=== PATIENT | male | born 1975 | race Caucasian/White ===

== ENCOUNTER 2017-10-01 23:43 | Emergency (ER) | payer SELFPAY ==
[~2017-10-01] VITALS: Ht 195.6 cm; Wt 113.3 kg
[2017-10-02 00:54] LABS: BASOPHIL (%) 0.3 % (0-1); EOSINOPHIL (%) 1.6 % (0-5); EOSINOPHIL COUNT 0.2 K/uL (0-0.3); HEMATOCRIT 44.2 % (38.0-50.0); HEMOGLOBIN 15.2 G/DL (12.5-16.6); IMMATURE GRANULOCYTE (%) 0.5 % (0.0-0.7); LYMPHOCYTE COUNT 1.8 K/uL (1.0-2.8); MCH 27.7 PG (29.0-34.0); MCHC 34.4 G/DL (30.0-36.0); MCV 80.5 FL (86-99); MONOCYTE (%) 7.5 % (3-12); MONOCYTE COUNT 0.9 K/uL (0-0.8); NEUTROPHIL (%) 75.1 % (45-76); NEUTROPHIL COUNT 9.1 K/uL (1.8-6.4); PLATELET COUNT 276 K/uL (156-360); RBC DIS.WIDTH-CV 12.7 % (11.8-14.6); RBC DIS.WIDTH-SD 37.2 % (39-53); RED BLOOD COUNT 5.49 M/uL (4.00-5.50); WHITE BLOOD COUNT 12.1 K/uL (4.1-10.2)
[2017-10-02 01:09] LABS: CHLORIDE 105 mEq/L (99-109); POTASSIUM 3.7 mEq/L (3.7-5.4); SODIUM 138 mEq/L (136-147)
[2017-10-02 01:10] LABS: GLUCOSE 100 mg/dL (70-99)
[2017-10-02 01:14] LABS: CREATININE 0.9 mg/dL (0.6-1.3); GFR ESTIMATE (CALCULATED) > 59 mL/min/ (58.99-99999)
[2017-10-02 01:15] LABS: UREA NITROGEN (BUN) 12 mg/dL (9-23)
[2017-10-02] MEDS ORDERED: MOTRIN800 MG PO (02:47)
[2017-10-02 02:58] VITALS: BP 154/98
== END 2017-10-02 02:59 | disposition home or self-care (01) ==
LOC: EME 23:43
PROVIDERS: Physician Assistant
DX: J02.9 Acute pharyngitis, unspecified (principal); R13.10 Dysphagia, unspecified; R22.1 Localized swelling, mass and lump, neck
CPT/HCPCS: 70491; 80048; 83605; 85025; 87040; 87077; 87185; 87651 90; 87801; 99281; 99284; J1100; J1885

== ENCOUNTER 2017-10-04 15:33 | Emergency (ER) | payer SELFPAY ==
[~2017-10-04] VITALS: Ht 195.6 cm; Wt 113.1 kg
[~2017-10-04 15:33] MED LIST: MOTRIN800 MG PO
[2017-10-04 16:58] LABS: BASOPHIL (%) 0.5 % (0-1); BASOPHIL COUNT 0.1 K/uL (0-0.1); EOSINOPHIL (%) 2.2 % (0-5); EOSINOPHIL COUNT 0.2 K/uL (0-0.3); HEMATOCRIT 48.3 % (38.0-50.0); HEMOGLOBIN 16.4 G/DL (12.5-16.6); IMMATURE GRANULOCYTE (%) 0.2 % (0.0-0.7); LYMPHOCYTE (%) 23.1 % (15-42); LYMPHOCYTE COUNT 2.2 K/uL (1.0-2.8); MCH 27.6 PG (29.0-34.0); MCV 81.2 FL (86-99); MONOCYTE (%) 9.9 % (3-12); MONOCYTE COUNT 0.9 K/uL (0-0.8); NEUTROPHIL (%) 64.1 % (45-76); PLATELET COUNT 266 K/uL (156-360); RBC DIS.WIDTH-CV 12.9 % (11.8-14.6); RBC DIS.WIDTH-SD 37.6 % (39-53); RED BLOOD COUNT 5.95 M/uL (4.00-5.50); WHITE BLOOD COUNT 9.4 K/uL (4.1-10.2)
[2017-10-04 17:08] LABS: ALBUMIN 3.4 g/dL (3.2-4.8); CHLORIDE 108 mEq/L (99-109); POTASSIUM 3.9 mEq/L (3.7-5.4); SODIUM 141 mEq/L (136-147)
[2017-10-04 17:10] LABS: GLUCOSE 96 mg/dL (70-99)
[2017-10-04 17:11] LABS: TOTAL PROTEIN 5.8 g/dL (6.4-8.3)
[2017-10-04 17:12] LABS: TOTAL BILIRUBIN 0.3 mg/dL (0.0-1.0)
[2017-10-04 17:14] LABS: ALKALINE PHOSPHATASE 56 IU/L (3-129); CREATININE 0.9 mg/dL (0.6-1.3); GFR ESTIMATE (CALCULATED) > 59 mL/min/ (58.99-99999)
[2017-10-04 17:15] LABS: UREA NITROGEN (BUN) 11 mg/dL (9-23)
[2017-10-04 17:16] LABS: AST (GOT) 18 IU/L (2-34)
[2017-10-04 17:17] LABS: ALT (GPT) 20 IU/L (3-49)
[2017-10-04] MEDS ORDERED: CEFPODOXIME PR100 MG PO (18:06)
[2017-10-04 18:30] VITALS: BP 123/84
== END 2017-10-04 19:11 | disposition home or self-care (01) ==
LOC: EME 15:33
PROVIDERS: Emergency Medicine
DX: J02.9 Acute pharyngitis, unspecified (principal); R78.81 Bacteremia
CPT/HCPCS: 80053; 83605; 85025; 87040; 99281; 99284; J0696; J7030